=== PATIENT | female | born 1980 | race Caucasian/White ===

== ENCOUNTER 2017-11-05 06:55 | Observation (INO) | payer BC ==
[2017-10-27 14:51] VITALS: BMI 35.0
--- NOTE | 2017-10-27 15:26 | PAT Medication Instructions ---
Service Date Oct 27, 2017. Current Home Medication List Gabapentin (Neurontin), 300 MG PO HS Ibuprofen Tab (Advil), 400 MG PO PRN Naproxen (Aleve), 440 MG PO PRN Omeprazole (Prilosec), 40 MG PO HS Venlafaxine Hcl (Effexor), 75 MG PO HS Medication Instructions For Your Scheduled Surgery - Contact your surgeon for instructions for: Ibuprofen Tab (Advil), 400 MG PO PRN Naproxen (Aleve), 440 MG PO PRN - Take the following medications as scheduled the night before surgery: Gabapentin (Neurontin), 300 MG PO HS Omeprazole (Prilosec), 40 MG PO HS Venlafaxine Hcl (Effexor), 75 MG PO HS If you have any questions please call us at [phone] or [phone] or [phone]
[2017-10-27 16:12] LABS: BASO % 0.3 %; BASO ABS # 0.02 K/uL (0-0.2); EOS % 1.2 %; EOS ABS # 0.09 K/uL (0-0.5); HEMATOCRIT 30.7 % (37-47); HEMOGLOBIN 9.9 g/dL (12.0-16.0); IG# 0.02 K/uL (0.00-0.02); LYMPH % 30.3 %; LYMPH ABS # 2.19 K/uL (1.2-3.4); MEAN CELL VOLUME 74.3 fL (80-100); MEAN CORPUSCULAR HGB CONC 32.2 g/dl (32-36); MEAN PLATELET VOLUME 10.3 fL (7.4-10.4); MONO % 5.8 %; MONO ABS # 0.42 K/uL (0.11-0.59); NEUT % 62.1 %; NEUT ABS # 4.48 K/uL (1.4-6.5); PLATELET COUNT 342 K/uL (130-400); RED CELL DISTRIBUTION WIDTH CV 16.1 % (11.5-14.5); RED CELL DISTRIBUTION WIDTH SD 44.2 fL (36.4-46.3); WHITE BLOOD COUNT 7.22 K/uL (4.8-10.8)
[~2017-11-05] VITALS: Ht 148.6 cm; Wt 79.0 kg
[2017-11-05] VITALS (8 sets, daily range): BP systolic 129–148; BP diastolic 78–84; PULSE 97–113; TEMP 36.6–37; O2SAT 91–100; Ht 148.6 cm; Wt 79.0 kg
[~2017-11-05 06:55] MED LIST: CEFAZOLIN 2000MG IV PUSH 15 ML IV SCH; EFF75 PO; GABA-112 PO; IBUP-103 PO; LACTATED RINGER'S 1000ML 1,000 ML IV SCH; NAPR1TAB9 PO; PRLSR20 PO
[2017-11-05] MEDS ORDERED: NEOSTIGMINE METHYLSULFATE 5 MG/5 ML SYR ONE (07:52)
[2017-11-05] MEDS ORDERED: EpHEDrine SULFATE INJ 50 MG/ML AMP ONE (07:52)
[2017-11-05] MEDS ORDERED: GLYCOPYRROLATE INJ 0.2 MG/ML VIAL ONE (07:52)
[2017-11-05] MEDS ORDERED: SUCCINYLCHOLINE CHLORIDE 20 MG/ML 10 ML VIAL IV ONE (07:52)
[2017-11-05] MEDS ORDERED: DEXAMETHASONE SOD INJ 4 MG/ML VIAL ONE (07:52)
[2017-11-05] MEDS ORDERED: PROPOFOL IV EMULSION 10 MG/ML 20 ML VIAL IV ONE (07:52)
[2017-11-05] MEDS ORDERED: LIDOCAINE HCL 2% 2 ML VIAL (20MG/ML) ONE (07:52)
[2017-11-05] MEDS ORDERED: ONDANSETRON INJ 2 MG/ML 2 ML VIAL ONE (07:52)
[2017-11-05] MEDS ORDERED: PHENYLEPHRINE HCL INJ 10 MG/ML VIAL ONE (07:52)
[2017-11-05] MEDS ORDERED: FENTANYL CITRATE INJ 50 MCG/1 ML 2 ML VIAL ONE (07:53)
[2017-11-05] MEDS ORDERED: MIDAZOLAM HCL 1 MG/ML 2ML VIAL ONE (07:53)
--- NOTE | 2017-11-05 08:02 | History & Physical Bridge Note ---
H&P Re-Evaluation Bridge Note: I have examined the patient, reviewed the History & Physical and in the interval since the performance of the History & Physical I have noted the following changes of clinical significance: No changes noted
[2017-11-05] MEDS ORDERED: BUPIVACAINE 0.5 % 5 MG/1 ML MPF 30ML VIAL ONE (08:11)
[2017-11-05] MEDS ORDERED: MINERAL OIL LIGHT 10 ML BTL ONE (08:32)
[2017-11-05] MEDS ORDERED: HYDROmorphone INJ 2 MG/ML SYR/VIAL ONE (09:11)
[2017-11-05] MEDS ORDERED: KETAMINE HCL INJ 50 MG/ML 10 ML VIAL ONE (09:13)
[2017-11-05] MEDS ORDERED: KETOROLAC TROMETHAMINE 30 MG/ML VIAL IV. PRN ×2 (11:00→11:15)
[2017-11-05] MEDS ORDERED: HYDROmorphone INJ 2 MG/ML SYR/VIAL IV PRN (11:00)
[2017-11-05] MEDS ORDERED: ONDANSETRON INJ 2 MG/ML 2 ML VIAL IV PRN ×2 (11:00→11:15)
[2017-11-05] MEDS ORDERED: ATROPINE SULFATE 0.1 MG/ML 5ML SYR IV PRN (11:00)
[2017-11-05] MEDS ORDERED: LABETALOL HCL IV 5 MG/ML 20ML IV PRN (11:00)
[2017-11-05] MEDS ORDERED: LACTATED RINGER'S 1000ML 1,000 ML IV SCH (11:03)
[2017-11-05] MEDS ORDERED: FUROSEMIDE 10 MG/ML 10 ML VIAL ONE (11:08)
--- NOTE | 2017-11-05 11:10 | [facility] Post Operative Brief Note ---
Immediate Operative Summary Operative Date Nov 05, 2017. Pre-Operative Diagnosis Heavy Menstrual Bleeding/Failed Endometrial Ablation Post-Operative Diagnosis Heavy menstrual Bleeding/Failed endometrial ablation Procedure(s) Performed Total Laparoscopic Hysterectomy, Bilateral Salpingectomy, Cystoscopy Surgeon Dr. Aydee Harris Telecommunications Repairer Surgeon(s) Dr. Travon Adames and Dr. Umberto Richard Estimated Blood Loss 25 ml Findings Consistent with Post-Op Diagnosis Fluids (cc crystalloids) 2300 Specimens Permanent Speciemen A: Uterus, cervix and bilateral Fallopian tubes Drains None Anesthesia Type General Complication(s) none Disposition Disposition: Recovery Room / PACU
[2017-11-05] MEDS ORDERED: ACETAMINOPHEN 325 MG TAB PO PRN (11:15)
[2017-11-05] MEDS ORDERED: SIMETHICONE 80 MG CHEW PO PRN (11:15)
[2017-11-05] MEDS ORDERED: OXYCODONE/ACETAMINOPHEN 5-325 TAB PO PRN (11:15)
[2017-11-05] MEDS ORDERED: IBUPROFEN 600 MG TAB PO PRN (11:15)
--- NOTE | 2017-11-05 11:45 | [facility] Operative Report ---
Operative Report Operative Date Nov 05, 2017. Pre-Operative Diagnosis Heavy Menstrual Bleeding/Failed Endometrial Ablation Post-Operative Diagnosis Heavy menstrual Bleeding/Failed endometrial ablation Procedure(s) Performed Total Laparoscopic Hysterectomy, Bilateral Salpingectomy, Cystoscopy Surgeon Dr. Aydee Harris Starchmaker Surgeon(s) Dr. Travon Adames and Dr. Umberto Richard Estimated Blood Loss 25 ml Findings Normal size anteverted uterus. Normal appearing ovaries bilaterally. Normal segmented portions of the fallopian tube. Anterior cul de sac was free of lesions or endometrial implants. The posterior cul de sac had scarring in the right uterosacral ligament (similar to endometriosis). Normal appearing liver edge. Appendix not visualized. Fluids 2300 Specimens Permanent Speciemen A: Uterus, cervix and bilateral Fallopian tubes Drains None Anesthesia Type General Complication(s) none Disposition Recovery Room / PACU Description of Procedure Mrs. Zaynab Paula is a 37 year old patient known to have heavy menstrual bleeding and a failed endometrial ablation. The patient requested definitive management with a hysterectomy after discussing all possible medical options. Consent was signed in the office prior and all risks and benefits were reviewed. Under GA in the dorsal lithotomy position, the patient was prepped and drapped in the usual sterile fashion. A weighted speculum was placed in the vagina and with the help of a right angle retractor the cervix was visualized and grasped anteriorly with a single tooth tenaculum. The uterus was then sounded to 7 cm. A V-care uterine manipulator was then applied to allow mobilization of the uterus. The weighted speculum was then removed. Attention was turned to the abdomen. 0.25% marcaine solution was infiltrated in the subumbilical area. A 5 mm subumbilical incision was made through the skin with a #11 blade and the 5 mm trocar with laparoscope was inserted uneventfully in the peritoneal cavity. The peritoneal cavity was insufflated with CO2 gas to a maximum pressure of 15 mmHg. The laparoscope confirmed appropriate location with no inadvertent damage to underlying structures. Examination of the peritoneal cavity revealed the above noted findings. The patient was then placed in steep Trendelenburg and three more 5 mm trocars were placed, one on the right and two on the left, taking care to avoid the epigastric vessels. All trocars were placed under direct visualization with no inadvertent damage to underlying structures. The uterus was upheld from below with good visualization. Beginning on the left side and distally along the length of the fallopean tube, the mesosalpinx was exposed by lifting the fimbrae of the fallopian tube up towards the anterior abdominal wall. The mesosalpinx was then sequentially, clamped, ligated, and cut using the DANNIELLE Harmonic working alongside the length of the tube and towards the cornua. Once the level of the midportion of the tube (patient with history of tubal ligation) was reached, the tube was cut, removed through the port. attention was then turned to the other side. The left round ligament was then ligated and cut. Following this, the anterior leaf of the broad ligament was then taken down on the left side, dissecting down towards the peritoneal reflection at the base of the bladder and adjacent to the cervix. The same process of the salpingectomy was repeated on the right, sequentially clamping, ligating, and cutting the mesosalpinx being sure to not injure the adjacent ovarian tissue or other surrounding structures.The right round ligament was then ligated and cut. Following this, the anterior leaf of the broad ligament was then taken down on the right side, dissecting down towards the peritoneal reflection at the base of the bladder and adjacent to the cervix. Both sides met and the anterior leaflet had been appropriately skeletonized. Once the bladder was appropriately dissected free from the lower anterior uterine segment and the tissues skeletonized, the uterine arteries were bilaterally clamped and ligated. Pedicles were checked and hemostatic. At the level of the plastic cup of the uterine manipulator, the vaginal vault was incised circumferentially with an DANNIELLE Harmonic. The uterus and cervix was delivered through the vagina and sent to pathology. A sterile glove was placed into the vagina to form a pneumatic seal and all the pedicles as well as the cuff edges were examined. Hemostasis was achieved with bipolar cautery. The vaginal vault was then closed with a 2-0 V-loc being sure to avoid the bladder lateral pedicles. Following vault closure, an inspection of all areas was made to ensure hemostasis. All ports were removed under direct visualization and hemostasis noted. The final 5 mm port was then opened to release the abdominal gas and removed with the laparoscope inplace to visualize its removal. All the incision sites were then closed with 4-0 monocryl sutures in a subcuticular fashion and dermabond. Cystoscopy was then performed with a 70 degree scope and revealed no lesions or suture in the bladder. Normal appearing bladder dome and trigone. Bilateral efflux of methylene blue by ureteral orifices. The bladder was then drained and the cystoscope was then removed. At the end of the procedure, all sponges, instruments, and sharps were counted and correct. Estimated blood loss was 25 ml. The patient was taken to recovery in stable condition. I attest to the content of the Intraoperative Record and any orders documented therein. Any exceptions are noted below.
[2017-11-05] MEDS ORDERED: MTR600X PO (11:59)
[2017-11-05] MEDS ORDERED: CLC100 PO (11:59)
[2017-11-05] MEDS ORDERED: MYL80 PO (11:59)
[2017-11-05] MEDS ORDERED: OXYC-57 PO (11:59)
[2017-11-05] MEDS ORDERED: IV FLUIDS COMPLETED PRN (12:00)
--- NOTE | 2017-11-05 12:02 | Discharge Instructions ---
Discharge Instructions Date of Service Nov 05, 2017. Admission Reason for Admission: Heavy Menstrual Bleeding, Failed Endometrial Ablat Discharge Discharge Diagnosis / Problem: Post-op Discharge Goals Goal(s): Routine recovery after surgery Activity Recommendations Activity Limitations: per Instructions/Follow-up section POST OPERATIVE: BOWEL FUNCTION/MEDICATIONS: 1. Constipation pain and discomfort are the most common complaints 5-7 days after surgery. Points 2-6 address the things that can help. 2. Chewing gum can help stimulate the gut and help improve digestion and motility. 3. Milk of Magnesia 1-2 times per day until return of bowel function. 4. Colace is a stool softener that helps. Taking this 2-3 times per day until bowel function returns to normal is highly recommended. 5. Dulcolax is a laxative that may be used if several days have passed without a bowel movement. Alternatively Miralax may be used daily instead. 6. Drink plenty of fluids as this will also reduce constipation. 7. Narcotic pain medications will be prescribed by your physician. They are safe to use and we encourage you to use them. If you are not allergic, ibuprofen will also be prescribed. Many patients will be able to transition off of the narcotic medications to ibuprofen by postoperative day 3. ACTIVITY RECOMMENDATIONS: 1. Get plenty of rest and listen to your body. If you are tired, take a nap. 2. You may shower, but do not take a tub bath until you see your doctor at the 2 week post operative visit. 3. Absolutely NO intercourse and nothing in the vagina until you are examined by your doctor at the 6 week visit. At that visit it will be determined when such activities can be resumed. This can range from 6-12 weeks after your surgery depending on healing time. 4. The main physical activity in the first week should be walking. By the second week you can slowly increase activity. There are no limits on walking up and down stairs. 5. Do not lift more than 5-10 lbs for 4 weeks. Remember the "one-handed rule", i.e. if you can lift something with only one hand it's likely okay. 6. Minimize hand washer like vacuuming and exercising for 4 weeks. "Overdoing it" can lead to incisions not healing, pain and vaginal bleeding , so again, listen to your body. 7. Driving can be resumed when you feel able. Do not drive within 24 hours of taking a narcotic medication. EXPECTATIONS: 1. Vaginal spotting, bleeding and discharge are common after surgery. There may even be an odor to the discharge which is often related to sutures used in the vagina. If you experience heavy vaginal bleeding, call the office number day or night [phone]. 2. Bladder discomfort is common after surgery from the catheter. This usually resolves in 1-2 weeks. 3. By the end of the 3rd or 4th week you should be feeling much better. It may take up to 6 weeks for your energy levels to return to normal. 4. Narcotic medications have side effects such as: dizziness, headache, nausea and/or vomiting. If you suspect your pain medication is causing problems, call our office and we may be able to prescribe an alternate medication. 5. The skin incisions are often covered with a liquid bandage. This will gradually peel off over time. CALL THE OFFICE IF YOU HAVE ANY OF THE FOLLOWIN. Temperature of 101 degrees or higher. 2. Severe abdominal or pelvic pain not relieved by pain medication. 3. Persistent nausea or vomiting. 4. Increased pain with urination or difficulty urinating. 5. Bright red bleeding that soaks more than 1 pad per hour. CONTACT PHONE NUMBERS: Main Office: [phone] FOLLOW-UP: Post-Operative Appointments: * Individual instructions will have been given about the timing of your first examination, but this is usually at the end of the second week home. * You will need to call the office at soon after discharge to make the appointment for your post-op check-up if it has not already been scheduled. * Additional information regarding activity, sexual intercourse and when to return to work will be given at this appointment. WE WISH YOU A SPEEDY RECOVERY! . Current Hospital Diet Patient's current hospital diet: Discharge Diet Recommended Diet: Regular Diet Procedures Procedures Performed: Total Laparoscopic Hysterectomy, Bilateral Salpingectomy, Cystoscopy Pending Studies Studies pending at discharge: no Medical Emergencies . Who to Call and When: Medical Emergencies: If at any time you feel your situation is an emergency, please call 911 immediately. . Non-Emergent Contact Non-Emergency issues call your: Specialist . . "Provider Documentation" section prepared by Aydee Garcia. . VTE Core Measure Inpt VTE Proph given/why not?: Treatment not indicated
--- NOTE | 2017-11-05 13:27 | Anesthesiology Progress Note ---
Anesthesia Post Op Note Date & Time Nov 05, 2017 at 13:27 Vital Signs Pain Intensity: 0 Vital Signs Past 12 Hours Date Time Temp Pulse Resp B/P (MAP) Pulse Ox O2 Delivery O2 Flow Rate FiO2 11/05/17 12:57 36.8 11/05/17 12:55 127/83 11/05/17 12:52 105 13 11/05/17 12:52 102 13 93 11/05/17 12:50 136/79 11/05/17 12:47 104 16 11/05/17 12:47 108 16 95 11/05/17 12:45 139/85 11/05/17 12:42 103 16 94 11/05/17 12:42 103 16 11/05/17 12:41 134/87 11/05/17 12:37 103 14 92 11/05/17 12:37 103 14 11/05/17 12:35 139/91 11/05/17 12:32 94 12 93 11/05/17 12:32 94 12 11/05/17 12:31 138/94 11/05/17 12:27 93 16 93 11/05/17 12:27 95 16 11/05/17 12:26 150/87 11/05/17 12:22 96 16 94 11/05/17 12:22 96 16 11/05/17 12:21 162/87 11/05/17 12:17 114 14 11/05/17 12:17 114 14 93 11/05/17 12:16 162/95 11/05/17 12:12 120 17 11/05/17 12:12 118 17 93 11/05/17 12:10 172/91 11/05/17 12:07 120 12 96 11/05/17 12:07 119 12 11/05/17 12:06 153/89 11/05/17 12:02 113 14 11/05/17 12:02 113 14 97 11/05/17 12:01 114 12 158/90 96 11/05/17 12:01 114 12 11/05/17 11:56 110 12 11/05/17 11:56 109 12 173/84 97 11/05/17 11:51 117 17 169/88 95 11/05/17 11:51 119 17 11/05/17 11:46 132 17 171/97 97 2/9/18 11:46 36.5 112 16 171/97 98 Oxymask 10 11/05/17 11:46 132 17 11/05/17 07:15 36.9 97 16 129/84 (99) 100 Room Air Notes Mental Status: alert / awake / arousable, participated in evaluation Pt Amnestic to Procedure: Yes Nausea / Vomiting: adequately controlled Pain: adequately controlled Airway Patency, RR, SpO2: stable & adequate BP & HR: stable & adequate Hydration State: stable & adequate Anesthetic Complications: no major complications apparent
[2017-11-05] MEDS: OXYCODONE/ACETAMINOPHEN 5-325 TAB PO PRN ×3 (13:48→18:24)
[2017-11-05] MEDS ORDERED: DOCUSATE SODIUM 100 MG CAP PO SCH (21:00)
== END 2017-11-05 18:30 | disposition home or self-care (01) ==
LOC: C.ACU 06:55 → C.MS4N 07:10 → ENRESERV 12:17
PROVIDERS: ADMIT Obstetrics & Gynecology Obstetrics; ATTEND Obstetrics & Gynecology Obstetrics
DX: N92.0 Excessive and frequent menstruation with regular cycle (principal); N84.0 Polyp of corpus uteri; D25.2 Subserosal leiomyoma of uterus; N72 Inflammatory disease of cervix uteri; F32.9 Major depressive disorder, single episode, unspecified; F17.200 Nicotine dependence, unspecified, uncomplicated; G62.9 Polyneuropathy, unspecified; Z83.3 Family history of diabetes mellitus; Z82.49 Family history of ischemic heart disease and other diseases of the circulatory system; Z82.3 Family history of stroke; Z79.899 Other long term (current) drug therapy